=== PATIENT | male | born 1940 | race Caucasian/White ===

== ENCOUNTER → 2017-01-14 | Outpatient (REF) | payer OTHER ==
[2017-01-14 19:11] LABS: BLOOD UREA NITROGEN 20 MG/DL (7-18); CREATININE FOR GFR 0.77 MG/DL (0.70-1.30); GLOMERULAR FILTRATION RATE > 60.0 (>42)
== END ==
LOC: M LABDRAW1 17:17
PROVIDERS: ATTEND Orthopaedic Surgery
DX: M48.46XA Fatigue fracture of vertebra, lumbar region, initial encounter for fracture (principal)

== ENCOUNTER → 2017-02-04 | Outpatient (REF) | payer OTHER ==
[2017-02-05 11:58] LABS: BLOOD UREA NITROGEN 20 MG/DL (7-18); CREATININE FOR GFR 0.73 MG/DL (0.70-1.30); GLOMERULAR FILTRATION RATE > 60.0 (>42)
== END ==
LOC: M LABDRAWC 11:22
PROVIDERS: ATTEND Radiology Radiation Oncology
DX: C34.90 Malignant neoplasm of unspecified part of unspecified bronchus or lung (principal)